=== PATIENT | male | born 1950 | race Caucasian/White ===

== ENCOUNTER 2021-03-21 21:31 | Inpatient (IN) | payer MEDICARE, MEDICAID ==
[~2021-03-21] VITALS: Ht 205.7 cm; Wt 159.8 kg
--- NOTE | 2021-03-21 21:42 | NUR ---
EKG DONE ON ARRIVAL.
--- NOTE | 2021-03-21 21:51 | NUR ---
PT BIBA FROM HOME FOR INTERMITTENT FEVER, DIARRHEA, LOSS OF APETITE AND DIZZINESS, EMS STATED UPON ARRIVAL PT WAS 75% ON ROOM AIR, PT STARTED ON 6LMP NASAL CANULA BY EMS AND WERE ONLY ABLE TO ACHEIVE 88% O2 SATURATION, PT ARRIVED WITH 18G IN THE LEFT FOREARM, PT STATES WHEN HE STANDS UP HE FEELS DIZZY AND CANT WALK EVEN A FEW STEPS WITHOUT SITTING DOWN
--- NOTE | 2021-03-21 21:53 | NUR ---
PT ON OXYMASK AT 15LMP AND NASAL CANULA AT 6LMP AND O2 SATURATION IS AT 91%
[2021-03-21] MEDS ORDERED: ONDANSETRON 2MG/ML, 2ML ONE (22:08)
--- NOTE | 2021-03-21 22:21 | NUR ---
THIS RN CALLED RESPIRATORY THERAPIST TO COME DOWN AND EVALUATE PT FOR OPTIFLOW SINCE THIS RN CANNOT GET PTS O2 SATURATION ABOVE 92% EVEN WHILE HAVING PT NASAL CANULA AND OXYMASK
[2021-03-21] MEDS ORDERED: PLEASE ENTER HEIGHT AND WEIGHT MC SCH (22:30)
[2021-03-21] MEDS ORDERED: CEFTRIAXONE 1,000 MG in DEXTROSE 5% 50 ML IVPB ONE (22:30)
[2021-03-21] MEDS ORDERED: SODIUM CHLORIDE 0.9% 1,000ML IVBOLUS ONE (22:30)
[2021-03-21] MEDS ORDERED: SODIUM CHLORIDE FLUSH 10ML SYR IVF ONE (22:30)
[2021-03-21] MEDS ORDERED: AZITHROMYCIN 500 MG in SODIUM CHLORIDE 0.9% 250 ML IV ONE (22:30)
[2021-03-21] MEDS ORDERED: ONDANSETRON 2MG/ML, 2ML IVPush ONE (22:30)
[2021-03-21 22:47] LABS: BASOPHILS % (AUTO) 0 % (0-1); EOSINOPHILS % (AUTO) 0 % (1-7); LYMPHOCYTES % (AUTO) 8 % (22-44); MEAN CORPUSCULAR HEMOGLOBIN 32.1 pg (27.5-34.5); MEAN CORPUSCULAR HGB CONC 33.7 g/dL (33.2-36.2); MEAN PLATELET VOLUME 9.1 fL (7.4-10.4); MONOCYTES % (AUTO) 9 % (2-9); NEUTROPHILS % (AUTO) 83 % (42-75); PLATELET COUNT 120 x10^3/uL (130-400); RED BLOOD COUNT 4.77 x10^6/uL (4.38-5.82); RED CELL DISTRIBUTION WIDTH 13.1 % (9.4-14.8)
[2021-03-21 22:59] LABS: ALANINE AMINOTRANSFERASE 37 U/L (12-78); ALBUMIN 2.5 g/dL (3.4-5.0); ANION GAP 6 mmol/L (5-15); CALCIUM 7.3 mg/dL (8.5-10.1); CHLORIDE 103 mmol/L (98-107); CREATININE 1.13 mg/dL (0.7-1.3)
[2021-03-21 23:03] LABS: ALKALINE PHOSPHATASE 62 U/L (45-117); BILIRUBIN,TOTAL 0.4 mg/dL (0.2-1.0); TOTAL PROTEIN 6.6 g/dL (6.4-8.2); TROPONIN I < 0.015 ng/mL (0.000-0.045)
[2021-03-22] MEDS ORDERED: PHARMACY MAY ADJ FOR RENAL FX MC PRN
[2021-03-22] MEDS ORDERED: ONDANSETRON 2MG/ML, 2ML IVPush PRN
[2021-03-22] MEDS ORDERED: LABETALOL 5MG/ML, 20ML IVPush PRN
[2021-03-22 01:18] VITALS: BP 129/85
[2021-03-22 01:28] VITALS: BP 129/85
[2021-03-22] MEDS: ENOXAPARIN 40 MG/0.4 ML SQ SCH (01:38)
[2021-03-22] MEDS: FAMOTIDINE 20 MG TABLET PO SCH ×3 (01:39→21:01)
[2021-03-22] MEDS: ASCORBIC ACID 500 MG TABLET PO SCH ×3 (01:39→21:02)
[2021-03-22] MEDS: MELATONIN 5 MG TABLET PO SCH ×2 (01:39→21:02)
[2021-03-22 04:21] LABS: BASOPHILS % (AUTO) 0 % (0-1); EOSINOPHILS % (AUTO) 0 % (1-7); LYMPHOCYTES % (AUTO) 13 % (22-44); MEAN CORPUSCULAR HEMOGLOBIN 32.4 pg (27.5-34.5); MEAN CORPUSCULAR HGB CONC 33.9 g/dL (33.2-36.2); MEAN PLATELET VOLUME 9.2 fL (7.4-10.4); MONOCYTES % (AUTO) 7 % (2-9); NEUTROPHILS % (AUTO) 79 % (42-75); PLATELET COUNT 96 x10^3/uL (130-400); RED BLOOD COUNT 4.44 x10^6/uL (4.38-5.82); RED CELL DISTRIBUTION WIDTH 13.3 % (9.4-14.8)
[2021-03-22 04:35] LABS: ANION GAP 6 mmol/L (5-15); CALCIUM 7.4 mg/dL (8.5-10.1); CHLORIDE 104 mmol/L (98-107)
[2021-03-22 04:36] LABS: CREATININE 0.95 mg/dL (0.7-1.3)
[2021-03-22] MEDS: DEXAMETHASONE 4 MG/ML, 1ML IVPush SCH (08:20)
[2021-03-22] MEDS: ZINC SULFATE 220 MG CAPSULE PO SCH (08:21)
[2021-03-22 09:59] VITALS: BP 92/52
[2021-03-22] MEDS: GUAIFENESIN/DM 100-10MG, 5ML UDC PO PRN (10:51)
[2021-03-22] MEDS: CHOLECALCIFEROL 5,000u TAB PO SCH (10:51)
[2021-03-22] MEDS: AZITHROMYCIN 250 MG TABLET PO SCH (10:51)
[2021-03-22] MEDS: ACETAMINOPHEN 325 MG TABLET PO PRN (10:51)
[2021-03-22] MEDS: CEFTRIAXONE 2 GM in DEXTROSE 5% 50 ML IVPB SCH (11:01)
[2021-03-22 15:59] VITALS: BP 99/67
[2021-03-22] MEDS ORDERED: REMDESIVIR 200 MG in SODIUM CHLORIDE 0.9% 100 ML IVPB ONE (17:00)
[2021-03-22 20:56] VITALS: BP 106/73
[2021-03-22] MEDS: THIAMINE 100MG TABLET PO SCH (21:02)
[2021-03-23 00:37] VITALS: BP 100/60
[2021-03-23] MEDS: ENOXAPARIN 40 MG/0.4 ML SQ SCH (00:47)
[2021-03-23] MEDS: GUAIFENESIN/DM 100-10MG, 5ML UDC PO PRN ×3 (00:48→20:34)
[2021-03-23] MEDS: ACETAMINOPHEN 325 MG TABLET PO PRN ×2 (00:48→20:34)
[2021-03-23 05:05] LABS: BASOPHILS % (AUTO) 0 % (0-1); EOSINOPHILS % (AUTO) 0 % (1-7); LYMPHOCYTES % (AUTO) 8 % (22-44); MEAN CORPUSCULAR HEMOGLOBIN 32.5 pg (27.5-34.5); MEAN CORPUSCULAR HGB CONC 34.3 g/dL (33.2-36.2); MEAN PLATELET VOLUME 8.9 fL (7.4-10.4); MONOCYTES % (AUTO) 10 % (2-9); NEUTROPHILS % (AUTO) 83 % (42-75); PLATELET COUNT 126 x10^3/uL (130-400); RED BLOOD COUNT 4.27 x10^6/uL (4.38-5.82); RED CELL DISTRIBUTION WIDTH 13.1 % (9.4-14.8)
[2021-03-23 05:06] LABS: HCT (SEDRATE) 40.2 % (39.2-51.8)
[2021-03-23 05:15] LABS: CHLORIDE 105 mmol/L (98-107)
[2021-03-23 05:41] LABS: ALANINE AMINOTRANSFERASE 31 U/L (12-78); ALBUMIN 2.4 g/dL (3.4-5.0); ALKALINE PHOSPHATASE 56 U/L (45-117); ANION GAP 8 mmol/L (5-15); BILIRUBIN,TOTAL 0.3 mg/dL (0.2-1.0); CALCIUM 7.8 mg/dL (8.5-10.1); CREATININE 0.77 mg/dL (0.7-1.3); TOTAL PROTEIN 6.4 g/dL (6.4-8.2)
[2021-03-23] MEDS: ZINC SULFATE 220 MG CAPSULE PO SCH (09:21)
[2021-03-23] MEDS: ASCORBIC ACID 500 MG TABLET PO SCH ×2 (09:21→20:34)
[2021-03-23] MEDS: CEFTRIAXONE 2 GM in DEXTROSE 5% 50 ML IVPB SCH (09:21)
[2021-03-23] MEDS: DEXAMETHASONE 4 MG/ML, 1ML IVPush SCH (09:21)
[2021-03-23] MEDS: THIAMINE 100MG TABLET PO SCH ×2 (09:22→20:34)
[2021-03-23] MEDS: AZITHROMYCIN 250 MG TABLET PO SCH (09:22)
[2021-03-23] MEDS: FAMOTIDINE 20 MG TABLET PO SCH ×2 (09:22→20:34)
[2021-03-23] MEDS: CHOLECALCIFEROL 5,000u TAB PO SCH (09:22)
[2021-03-23 09:39] VITALS: BP 105/71
[2021-03-23] MEDS: FUROSEMIDE 40 MG/4 ML IV SCH ×2 (10:04→17:33)
[2021-03-23 14:00] VITALS: BP 112/76
[2021-03-23] MEDS: REMDESIVIR 100 MG in SODIUM CHLORIDE 0.9% 100 ML IVPB SCH (17:33)
[2021-03-23] MEDS: MELATONIN 5 MG TABLET PO SCH (20:34)
[2021-03-23 20:35] VITALS: BP 113/80
[2021-03-24 00:37] VITALS: BP 105/67
[2021-03-24] MEDS: ENOXAPARIN 40 MG/0.4 ML SQ SCH ×2 (01:00→23:53)
[2021-03-24 08:27] VITALS: BP 111/73
[2021-03-24 08:39] LABS: BASOPHILS % (AUTO) 0 % (0-1); EOSINOPHILS % (AUTO) 0 % (1-7); LYMPHOCYTES % (AUTO) 6 % (22-44); MEAN CORPUSCULAR HGB CONC 33.9 g/dL (33.2-36.2); MEAN PLATELET VOLUME 8.6 fL (7.4-10.4); MONOCYTES % (AUTO) 7 % (2-9); NEUTROPHILS % (AUTO) 88 % (42-75); PLATELET COUNT 178 x10^3/uL (130-400); RED BLOOD COUNT 4.64 x10^6/uL (4.38-5.82); RED CELL DISTRIBUTION WIDTH 13.3 % (9.4-14.8)
[2021-03-24 08:47] LABS: ALBUMIN 2.7 g/dL (3.4-5.0); ANION GAP 7 mmol/L (5-15); CALCIUM 8.1 mg/dL (8.5-10.1); CHLORIDE 106 mmol/L (98-107)
[2021-03-24 08:53] LABS: ALANINE AMINOTRANSFERASE 63 U/L (12-78); ALKALINE PHOSPHATASE 65 U/L (45-117); BILIRUBIN,TOTAL 0.5 mg/dL (0.2-1.0)
[2021-03-24] MEDS: FUROSEMIDE 40 MG/4 ML IV SCH ×2 (10:21→18:01)
[2021-03-24] MEDS: DEXAMETHASONE 4 MG/ML, 1ML IVPush SCH (10:21)
[2021-03-24] MEDS: ZINC SULFATE 220 MG CAPSULE PO SCH (10:21)
[2021-03-24] MEDS: CHOLECALCIFEROL 5,000u TAB PO SCH (10:21)
[2021-03-24] MEDS: THIAMINE 100MG TABLET PO SCH ×2 (10:22→21:57)
[2021-03-24] MEDS: ASCORBIC ACID 500 MG TABLET PO SCH ×2 (10:22→21:57)
[2021-03-24] MEDS: AZITHROMYCIN 250 MG TABLET PO SCH (10:22)
[2021-03-24] MEDS: FAMOTIDINE 20 MG TABLET PO SCH ×2 (10:22→21:57)
[2021-03-24] MEDS: CEFTRIAXONE 2 GM in DEXTROSE 5% 50 ML IVPB SCH (10:37)
[2021-03-24 12:01] VITALS: BP 126/77
[2021-03-24] MEDS: REMDESIVIR 100 MG in SODIUM CHLORIDE 0.9% 100 ML IVPB SCH (18:01)
[2021-03-24 21:36] VITALS: BP 101/65
[2021-03-24] MEDS: MELATONIN 5 MG TABLET PO SCH (21:57)
[2021-03-25 00:28] VITALS: BP 98/63
[2021-03-25 04:40] LABS: BASOPHILS % (AUTO) 0 % (0-1); EOSINOPHILS % (AUTO) 0 % (1-7); LYMPHOCYTES % (AUTO) 4 % (22-44); MEAN CORPUSCULAR HEMOGLOBIN 32.4 pg (27.5-34.5); MEAN CORPUSCULAR HGB CONC 34.2 g/dL (33.2-36.2); MEAN PLATELET VOLUME 8.7 fL (7.4-10.4); MONOCYTES % (AUTO) 8 % (2-9); NEUTROPHILS % (AUTO) 88 % (42-75); PLATELET COUNT 181 x10^3/uL (130-400); RED BLOOD COUNT 4.46 x10^6/uL (4.38-5.82); RED CELL DISTRIBUTION WIDTH 13.2 % (9.4-14.8)
[2021-03-25 04:54] LABS: ALBUMIN 2.4 g/dL (3.4-5.0); ANION GAP 7 mmol/L (5-15); CALCIUM 7.8 mg/dL (8.5-10.1); CHLORIDE 105 mmol/L (98-107)
[2021-03-25 04:57] LABS: ALANINE AMINOTRANSFERASE 106 U/L (12-78); ALKALINE PHOSPHATASE 68 U/L (45-117); BILIRUBIN,TOTAL 0.5 mg/dL (0.2-1.0); CREATININE 0.71 mg/dL (0.7-1.3); TOTAL PROTEIN 6.6 g/dL (6.4-8.2)
[2021-03-25] MEDS: FUROSEMIDE 40 MG/4 ML IV SCH ×2 (08:30→17:10)
[2021-03-25] MEDS: ZINC SULFATE 220 MG CAPSULE PO SCH (08:30)
[2021-03-25] MEDS: ASCORBIC ACID 500 MG TABLET PO SCH ×2 (08:30→21:23)
[2021-03-25] MEDS: DEXAMETHASONE 4 MG/ML, 1ML IVPush SCH (08:30)
[2021-03-25] MEDS: CHOLECALCIFEROL 5,000u TAB PO SCH (08:31)
[2021-03-25] MEDS: AZITHROMYCIN 250 MG TABLET PO SCH (08:31)
[2021-03-25] MEDS: FAMOTIDINE 20 MG TABLET PO SCH ×2 (08:31→21:24)
[2021-03-25] MEDS: THIAMINE 100MG TABLET PO SCH ×2 (08:31→21:24)
[2021-03-25] MEDS: DOCUSATE 100 MG CAPSULE PO SCH (08:31)
[2021-03-25 08:33] VITALS: BP 94/59
[2021-03-25] MEDS ORDERED: LACTULOSE 20 GM/30 ML UDC PO PRN (09:00)
[2021-03-25] MEDS: CEFTRIAXONE 2 GM in DEXTROSE 5% 50 ML IVPB SCH (10:13)
[2021-03-25 10:43] LABS: MICROSCOPIC NOT IND
[2021-03-25 12:41] VITALS: BP 95/61
[2021-03-25] MEDS: REMDESIVIR 100 MG in SODIUM CHLORIDE 0.9% 100 ML IVPB SCH (17:10)
[2021-03-25 20:41] VITALS: BP 103/65
[2021-03-25] MEDS ORDERED: BISACODYL 10 MG SUPP PR PRN (21:00)
[2021-03-25] MEDS: SENNA/DOCUSATE TABLET PO SCH (21:23)
[2021-03-25] MEDS: MELATONIN 5 MG TABLET PO SCH (21:23)
[2021-03-26] MEDS: ENOXAPARIN 40 MG/0.4 ML SQ SCH
[2021-03-26] MEDS: GUAIFENESIN/DM 100-10MG, 5ML UDC PO PRN ×2 (01:12→23:22)
[2021-03-26 02:29] VITALS: BP 97/62
[2021-03-26 04:59] LABS: ALBUMIN 2.3 g/dL (3.4-5.0); ANION GAP 6 mmol/L (5-15); CALCIUM 7.7 mg/dL (8.5-10.1); CHLORIDE 101 mmol/L (98-107)
[2021-03-26 05:04] LABS: ALANINE AMINOTRANSFERASE 111 U/L (12-78); ALKALINE PHOSPHATASE 69 U/L (45-117); BILIRUBIN,TOTAL 0.6 mg/dL (0.2-1.0); CREATININE 0.79 mg/dL (0.7-1.3); TOTAL PROTEIN 6.7 g/dL (6.4-8.2)
[2021-03-26] MEDS: DOCUSATE 100 MG CAPSULE PO SCH (08:02)
[2021-03-26] MEDS: THIAMINE 100MG TABLET PO SCH ×2 (08:02→21:00)
[2021-03-26] MEDS: ASCORBIC ACID 500 MG TABLET PO SCH ×2 (08:02→21:00)
[2021-03-26] MEDS: FAMOTIDINE 20 MG TABLET PO SCH ×2 (08:02→21:00)
[2021-03-26] MEDS: ZINC SULFATE 220 MG CAPSULE PO SCH (08:03)
[2021-03-26] MEDS: FUROSEMIDE 40 MG/4 ML IV SCH ×2 (08:03→16:56)
[2021-03-26] MEDS: CHOLECALCIFEROL 5,000u TAB PO SCH (08:03)
[2021-03-26] MEDS: DEXAMETHASONE 4 MG/ML, 1ML IVPush SCH (08:03)
[2021-03-26 08:07] VITALS: BP 95/64
[2021-03-26] MEDS: CEFTRIAXONE 2 GM in DEXTROSE 5% 50 ML IVPB SCH (10:40)
[2021-03-26 13:24] VITALS: BP 112/78
[2021-03-26] MEDS: REMDESIVIR 100 MG in SODIUM CHLORIDE 0.9% 100 ML IVPB SCH (16:57)
[2021-03-26] MEDS: SENNA/DOCUSATE TABLET PO SCH (21:00)
[2021-03-26] MEDS: MELATONIN 5 MG TABLET PO SCH (21:00)
[2021-03-27] MEDS: ENOXAPARIN 40 MG/0.4 ML SQ SCH (00:50)
[2021-03-27 01:58] VITALS: BP 108/72
[2021-03-27 06:40] LABS: BASOPHILS % (AUTO) 0 % (0-1); EOSINOPHILS % (AUTO) 1 % (1-7); LYMPHOCYTES % (AUTO) 7 % (22-44); MEAN CORPUSCULAR HEMOGLOBIN 31.6 pg (27.5-34.5); MEAN CORPUSCULAR HGB CONC 33.4 g/dL (33.2-36.2); MEAN PLATELET VOLUME 9.5 fL (7.4-10.4); MONOCYTES % (AUTO) 8 % (2-9); NEUTROPHILS % (AUTO) 84 % (42-75); PLATELET COUNT 137 x10^3/uL (130-400); RED BLOOD COUNT 4.54 x10^6/uL (4.38-5.82); RED CELL DISTRIBUTION WIDTH 13.2 % (9.4-14.8)
[2021-03-27 06:50] LABS: ANION GAP 6 mmol/L (5-15); CALCIUM 7.8 mg/dL (8.5-10.1); CHLORIDE 99 mmol/L (98-107); CREATININE 0.76 mg/dL (0.7-1.3)
[2021-03-27] MEDS: FAMOTIDINE 20 MG TABLET PO SCH ×2 (08:03→20:40)
[2021-03-27] MEDS: CHOLECALCIFEROL 5,000u TAB PO SCH (08:03)
[2021-03-27] MEDS: DOCUSATE 100 MG CAPSULE PO SCH (08:03)
[2021-03-27] MEDS: ZINC SULFATE 220 MG CAPSULE PO SCH (08:03)
[2021-03-27] MEDS: ASCORBIC ACID 500 MG TABLET PO SCH ×2 (08:04→20:41)
[2021-03-27] MEDS: DEXAMETHASONE 4 MG/ML, 1ML IVPush SCH (08:04)
[2021-03-27] MEDS: THIAMINE 100MG TABLET PO SCH ×2 (08:04→20:40)
[2021-03-27] MEDS: FUROSEMIDE 40 MG/4 ML IV SCH ×2 (08:04→16:14)
[2021-03-27 08:07] VITALS: BP 121/82
[2021-03-27] MEDS: CEFTRIAXONE 2 GM in DEXTROSE 5% 50 ML IVPB SCH (09:59)
[2021-03-27 13:27] VITALS: BP 112/71
[2021-03-27 18:45] VITALS: BP 114/82
[2021-03-27] MEDS: GUAIFENESIN/DM 100-10MG, 5ML UDC PO PRN (20:40)
[2021-03-27] MEDS: MELATONIN 5 MG TABLET PO SCH (20:41)
[2021-03-28] MEDS: ENOXAPARIN 40 MG/0.4 ML SQ SCH (00:50)
[2021-03-28 00:53] VITALS: BP 118/78
[2021-03-28] MEDS: ACETAMINOPHEN 325 MG TABLET PO PRN ×2 (01:30→20:20)
[2021-03-28 06:39] LABS: BASOPHILS % (AUTO) 0 % (0-1); EOSINOPHILS % (AUTO) 2 % (1-7); LYMPHOCYTES % (AUTO) 10 % (22-44); MEAN CORPUSCULAR HEMOGLOBIN 32.4 pg (27.5-34.5); MEAN CORPUSCULAR HGB CONC 34.3 g/dL (33.2-36.2); MEAN PLATELET VOLUME 10.9 fL (7.4-10.4); MONOCYTES % (AUTO) 9 % (2-9); NEUTROPHILS % (AUTO) 80 % (42-75); PLATELET COUNT 144 x10^3/uL (130-400); RED BLOOD COUNT 4.77 x10^6/uL (4.38-5.82); RED CELL DISTRIBUTION WIDTH 13.1 % (9.4-14.8)
[2021-03-28 06:42] LABS: ALBUMIN 2.6 g/dL (3.4-5.0); ANION GAP 8 mmol/L (5-15); CALCIUM 8.3 mg/dL (8.5-10.1); CHLORIDE 99 mmol/L (98-107)
[2021-03-28 06:51] LABS: ALANINE AMINOTRANSFERASE 68 U/L (12-78); ALKALINE PHOSPHATASE 76 U/L (45-117); BILIRUBIN,TOTAL 0.8 mg/dL (0.2-1.0); CREATININE 0.71 mg/dL (0.7-1.3); TOTAL PROTEIN 7.3 g/dL (6.4-8.2)
[2021-03-28] MEDS: FAMOTIDINE 20 MG TABLET PO SCH ×2 (08:07→20:20)
[2021-03-28] MEDS: THIAMINE 100MG TABLET PO SCH ×2 (08:07→20:20)
[2021-03-28] MEDS: ZINC SULFATE 220 MG CAPSULE PO SCH (08:07)
[2021-03-28] MEDS: FUROSEMIDE 40 MG/4 ML IV SCH ×2 (08:08→16:45)
[2021-03-28] MEDS: CHOLECALCIFEROL 5,000u TAB PO SCH (08:08)
[2021-03-28] MEDS: ASCORBIC ACID 500 MG TABLET PO SCH ×2 (08:08→20:19)
[2021-03-28] MEDS: DEXAMETHASONE 4 MG/ML, 1ML IVPush SCH (08:08)
[2021-03-28] MEDS: DOCUSATE 100 MG CAPSULE PO SCH (08:09)
[2021-03-28 08:11] VITALS: BP 89/65
[2021-03-28 13:55] VITALS: BP 114/75
[2021-03-28 19:55] VITALS: BP 121/82
[2021-03-28] MEDS: MELATONIN 5 MG TABLET PO SCH (20:19)
[2021-03-28] MEDS: GUAIFENESIN/DM 100-10MG, 5ML UDC PO PRN (20:20)
[2021-03-29] MEDS: ENOXAPARIN 40 MG/0.4 ML SQ SCH (00:55)
[2021-03-29 01:48] VITALS: BP 117/76
[2021-03-29 05:01] LABS: BASOPHILS % (AUTO) 0 % (0-1); EOSINOPHILS % (AUTO) 1 % (1-7); LYMPHOCYTES % (AUTO) 7 % (22-44); MEAN CORPUSCULAR HEMOGLOBIN 32.6 pg (27.5-34.5); MEAN CORPUSCULAR HGB CONC 34.4 g/dL (33.2-36.2); MEAN PLATELET VOLUME 10.7 fL (7.4-10.4); MONOCYTES % (AUTO) 9 % (2-9); NEUTROPHILS % (AUTO) 84 % (42-75); PLATELET COUNT 124 x10^3/uL (130-400); RED BLOOD COUNT 4.65 x10^6/uL (4.38-5.82); RED CELL DISTRIBUTION WIDTH 13.1 % (9.4-14.8)
[2021-03-29 05:02] LABS: CALCIUM 8.2 mg/dL (8.5-10.1); CHLORIDE 100 mmol/L (98-107)
[2021-03-29 05:07] LABS: ALANINE AMINOTRANSFERASE 55 U/L (12-78); ALBUMIN 2.5 g/dL (3.4-5.0); ALKALINE PHOSPHATASE 72 U/L (45-117); ANION GAP 6 mmol/L (5-15); BILIRUBIN,TOTAL 0.8 mg/dL (0.2-1.0); CREATININE 0.74 mg/dL (0.7-1.3); TOTAL PROTEIN 7.4 g/dL (6.4-8.2)
[2021-03-29] MEDS: FUROSEMIDE 40 MG/4 ML IV SCH ×2 (08:11→17:10)
[2021-03-29] MEDS: POLYETHYLENE GLYCOL 17 GM PACKET PO PRN (08:12)
[2021-03-29] MEDS: DEXAMETHASONE 4 MG/ML, 1ML IVPush SCH (08:12)
[2021-03-29] MEDS: ZINC SULFATE 220 MG CAPSULE PO SCH (08:13)
[2021-03-29] MEDS: ASCORBIC ACID 500 MG TABLET PO SCH ×2 (08:14→21:06)
[2021-03-29] MEDS: DOCUSATE 100 MG CAPSULE PO SCH (08:14)
[2021-03-29] MEDS: CHOLECALCIFEROL 5,000u TAB PO SCH (08:15)
[2021-03-29] MEDS: FAMOTIDINE 20 MG TABLET PO SCH ×2 (08:15→21:06)
[2021-03-29] MEDS: THIAMINE 100MG TABLET PO SCH ×2 (08:16→21:06)
[2021-03-29 08:37] VITALS: BP 115/75
[2021-03-29] MEDS: FLUTICASONE/VILANTEROL 100-25MCG/INH INH SCH (10:58)
[2021-03-29 13:03] VITALS: BP 103/72
[2021-03-29 20:41] VITALS: BP 102/68
[2021-03-29] MEDS: MELATONIN 5 MG TABLET PO SCH (21:07)
[2021-03-30] MEDS: ENOXAPARIN 40 MG/0.4 ML SQ SCH ×2 (00:05→23:39)
[2021-03-30 02:46] VITALS: BP 99/68
[2021-03-30 06:28] LABS: BASOPHILS % (AUTO) 0 % (0-1); EOSINOPHILS % (AUTO) 1 % (1-7); LYMPHOCYTES % (AUTO) 11 % (22-44); MEAN CORPUSCULAR HEMOGLOBIN 32.1 pg (27.5-34.5); MEAN CORPUSCULAR HGB CONC 34.1 g/dL (33.2-36.2); MEAN PLATELET VOLUME 10.4 fL (7.4-10.4); MONOCYTES % (AUTO) 11 % (2-9); NEUTROPHILS % (AUTO) 76 % (42-75); PLATELET COUNT 113 x10^3/uL (130-400); RED BLOOD COUNT 4.78 x10^6/uL (4.38-5.82)
[2021-03-30 06:35] LABS: ALANINE AMINOTRANSFERASE 54 U/L (12-78); ALBUMIN 1.9 g/dL (3.4-5.0); ANION GAP 4 mmol/L (5-15); CALCIUM 8.3 mg/dL (8.5-10.1); CHLORIDE 101 mmol/L (98-107); CREATININE 0.71 mg/dL (0.7-1.3)
[2021-03-30 06:44] LABS: ALKALINE PHOSPHATASE 70 U/L (45-117); BILIRUBIN,TOTAL 0.8 mg/dL (0.2-1.0); TOTAL PROTEIN 7.2 g/dL (6.4-8.2)
[2021-03-30 07:42] VITALS: BP 120/77
[2021-03-30] MEDS: ASCORBIC ACID 500 MG TABLET PO SCH ×2 (07:56→20:33)
[2021-03-30] MEDS: FAMOTIDINE 20 MG TABLET PO SCH ×2 (07:56→20:33)
[2021-03-30] MEDS: DOCUSATE 100 MG CAPSULE PO SCH (07:56)
[2021-03-30] MEDS: FUROSEMIDE 40 MG/4 ML IV SCH ×2 (07:56→17:00)
[2021-03-30] MEDS: ZINC SULFATE 220 MG CAPSULE PO SCH (07:56)
[2021-03-30] MEDS: DEXAMETHASONE 4 MG/ML, 1ML IVPush SCH (07:56)
[2021-03-30] MEDS: CHOLECALCIFEROL 5,000u TAB PO SCH (07:57)
[2021-03-30] MEDS: THIAMINE 100MG TABLET PO SCH ×2 (07:57→20:33)
[2021-03-30] MEDS: FLUTICASONE/VILANTEROL 100-25MCG/INH INH SCH (07:59)
[2021-03-30 12:34] VITALS: BP 101/69
[2021-03-30] MEDS: ACETAMINOPHEN 325 MG TABLET PO PRN (14:00)
[2021-03-30] MEDS: POLYETHYLENE GLYCOL 17 GM PACKET PO PRN (17:00)
[2021-03-30 20:23] VITALS: BP 111/76
[2021-03-30] MEDS: MELATONIN 5 MG TABLET PO SCH (20:33)
[2021-03-31 02:00] VITALS: BP 105/62
[2021-03-31 04:57] VITALS: BP 100/67
[2021-03-31 08:23] VITALS: BP 97/66
[2021-03-31] MEDS: ZINC SULFATE 220 MG CAPSULE PO SCH (09:00)
[2021-03-31] MEDS: ASCORBIC ACID 500 MG TABLET PO SCH ×2 (09:28→22:10)
[2021-03-31] MEDS: CHOLECALCIFEROL 5,000u TAB PO SCH (09:28)
[2021-03-31] MEDS: DOCUSATE 100 MG CAPSULE PO SCH (09:28)
[2021-03-31] MEDS: THIAMINE 100MG TABLET PO SCH ×2 (09:28→22:10)
[2021-03-31] MEDS: DEXAMETHASONE 4 MG/ML, 1ML IVPush SCH (09:28)
[2021-03-31] MEDS: FAMOTIDINE 20 MG TABLET PO SCH ×2 (09:28→22:10)
[2021-03-31] MEDS: FUROSEMIDE 40 MG/4 ML IV SCH ×2 (09:29→17:09)
[2021-03-31] MEDS: FLUTICASONE/VILANTEROL 100-25MCG/INH INH SCH (09:29)
[2021-03-31 10:32] LABS: ANION GAP 5 mmol/L (5-15); CALCIUM 8.9 mg/dL (8.5-10.1); CHLORIDE 98 mmol/L (98-107); CREATININE 1.03 mg/dL (0.7-1.3)
[2021-03-31 10:34] LABS: BASOPHILS % (AUTO) 1 % (0-1); EOSINOPHILS % (AUTO) 1 % (1-7); LYMPHOCYTES % (AUTO) 14 % (22-44); MEAN CORPUSCULAR HEMOGLOBIN 31.9 pg (27.5-34.5); MEAN CORPUSCULAR HGB CONC 33.7 g/dL (33.2-36.2); MEAN PLATELET VOLUME 11.3 fL (7.4-10.4); MONOCYTES % (AUTO) 12 % (2-9); NEUTROPHILS % (AUTO) 73 % (42-75); PLATELET COUNT 158 x10^3/uL (130-400); RED BLOOD COUNT 5.22 x10^6/uL (4.38-5.82); RED CELL DISTRIBUTION WIDTH 13.1 % (9.4-14.8)
[2021-03-31] MEDS ORDERED: POTASSIUM CHLORIDE 20 MEQ TAB.ER.PRT PO ONE (12:30)
[2021-03-31 20:00] VITALS: BP 133/79
[2021-03-31 20:20] VITALS: BP 109/74
[2021-03-31] MEDS: MELATONIN 5 MG TABLET PO SCH (22:10)
[2021-04-01 00:58] VITALS: BP 89/59
[2021-04-01] MEDS: ENOXAPARIN 40 MG/0.4 ML SQ SCH ×2 (01:02→23:08)
[2021-04-01 04:38] LABS: BASOPHILS % (AUTO) 1 % (0-1); EOSINOPHILS % (AUTO) 1 % (1-7); LYMPHOCYTES % (AUTO) 12 % (22-44); MEAN CORPUSCULAR HEMOGLOBIN 31.5 pg (27.5-34.5); MEAN CORPUSCULAR HGB CONC 33.5 g/dL (33.2-36.2); MEAN PLATELET VOLUME 11.4 fL (7.4-10.4); MONOCYTES % (AUTO) 12 % (2-9); NEUTROPHILS % (AUTO) 74 % (42-75); PLATELET COUNT 161 x10^3/uL (130-400); RED BLOOD COUNT 4.79 x10^6/uL (4.38-5.82); RED CELL DISTRIBUTION WIDTH 13.2 % (9.4-14.8)
[2021-04-01 04:50] LABS: CALCIUM 9.2 mg/dL (8.5-10.1); CHLORIDE 99 mmol/L (98-107)
[2021-04-01 04:58] LABS: ANION GAP 6 mmol/L (5-15); C-REACTIVE PROTEIN, QUANT 0.85 mg/dL (0.02-0.49); CREATININE 0.93 mg/dL (0.7-1.3)
[2021-04-01 05:05] LABS: D-DIMER 2.37 ug/mlFEU (0.00-0.52)
[2021-04-01] MEDS: DEXAMETHASONE 4 MG/ML, 1ML IVPush SCH (08:29)
[2021-04-01] MEDS: FLUTICASONE/VILANTEROL 100-25MCG/INH INH SCH (08:29)
[2021-04-01] MEDS: FUROSEMIDE 40 MG/4 ML IV SCH ×2 (08:29→16:28)
[2021-04-01] MEDS: ASCORBIC ACID 500 MG TABLET PO SCH ×2 (08:30→20:02)
[2021-04-01] MEDS: FAMOTIDINE 20 MG TABLET PO SCH ×2 (08:30→20:02)
[2021-04-01] MEDS: THIAMINE 100MG TABLET PO SCH ×2 (08:30→20:02)
[2021-04-01] MEDS: DOCUSATE 100 MG CAPSULE PO SCH (08:30)
[2021-04-01] MEDS: ZINC SULFATE 220 MG CAPSULE PO SCH (08:31)
[2021-04-01] MEDS: CHOLECALCIFEROL 5,000u TAB PO SCH (08:32)
[2021-04-01 08:36] VITALS: BP 95/67
[2021-04-01] MEDS: ACETAMINOPHEN 325 MG TABLET PO PRN (08:48)
[2021-04-01 14:15] VITALS: BP 117/78
[2021-04-01] MEDS ORDERED: OMNIPAQUE 350 MG/ML, 100ML BOTTLE ONE (18:00)
[2021-04-01] MEDS: MELATONIN 5 MG TABLET PO SCH (20:02)
[2021-04-01 20:37] VITALS: BP 114/80
[2021-04-01] MEDS ORDERED: SIMETHICONE 125 MG CHEW TAB PO ONE (21:00)
[2021-04-02 02:48] VITALS: BP 102/72
[2021-04-02 06:45] LABS: CALCIUM 8.8 mg/dL (8.5-10.1); CHLORIDE 98 mmol/L (98-107)
[2021-04-02 06:48] LABS: ANION GAP 5 mmol/L (5-15); CREATININE 1.03 mg/dL (0.7-1.3)
[2021-04-02] MEDS: FUROSEMIDE 40 MG/4 ML IV SCH (07:30)
[2021-04-02 10:51] VITALS: BP 93/61
[2021-04-02] MEDS: ZINC SULFATE 220 MG CAPSULE PO SCH (11:02)
[2021-04-02] MEDS: DOCUSATE 100 MG CAPSULE PO SCH (11:02)
[2021-04-02] MEDS: DEXAMETHASONE 4 MG/ML, 1ML IVPush SCH (11:02)
[2021-04-02] MEDS: CHOLECALCIFEROL 5,000u TAB PO SCH (11:02)
[2021-04-02] MEDS: FAMOTIDINE 20 MG TABLET PO SCH ×2 (11:02→22:23)
[2021-04-02] MEDS: ASCORBIC ACID 500 MG TABLET PO SCH ×2 (11:03→22:23)
[2021-04-02] MEDS: ACETAMINOPHEN 325 MG TABLET PO PRN (11:05)
[2021-04-02] MEDS: FLUTICASONE/VILANTEROL 100-25MCG/INH INH SCH (11:11)
[2021-04-02] MEDS ORDERED: FUROSEMIDE 40 MG TABLET ONE (12:29)
[2021-04-02] MEDS: FUROSEMIDE 40 MG TABLET PO SCH ×2 (12:50→18:37)
[2021-04-02] MEDS: THIAMINE 100MG TABLET PO SCH ×2 (12:50→21:00)
[2021-04-02 13:38] VITALS: BP 113/73
[2021-04-02 20:47] VITALS: BP 99/66
[2021-04-02] MEDS: MELATONIN 5 MG TABLET PO SCH (21:00)
[2021-04-02] MEDS: ENOXAPARIN 40 MG/0.4 ML SQ SCH (23:42)
[2021-04-03 03:49] VITALS: BP 95/63
[2021-04-03 07:19] LABS: BASOPHILS % (AUTO) 1 % (0-1); EOSINOPHILS % (AUTO) 1 % (1-7); LYMPHOCYTES % (AUTO) 12 % (22-44); MEAN CORPUSCULAR HGB CONC 33.8 g/dL (33.2-36.2); MONOCYTES % (AUTO) 11 % (2-9); NEUTROPHILS % (AUTO) 76 % (42-75); PLATELET COUNT 124 x10^3/uL (130-400); RED BLOOD COUNT 4.72 x10^6/uL (4.38-5.82); RED CELL DISTRIBUTION WIDTH 12.8 % (9.4-14.8)
[2021-04-03 07:33] LABS: ALBUMIN 2.7 g/dL (3.4-5.0); ANION GAP 9 mmol/L (5-15); CHLORIDE 98 mmol/L (98-107)
[2021-04-03 07:41] LABS: ALANINE AMINOTRANSFERASE 45 U/L (12-78); ALKALINE PHOSPHATASE 79 U/L (45-117); BILIRUBIN,TOTAL 0.9 mg/dL (0.2-1.0); C-REACTIVE PROTEIN, QUANT 0.79 mg/dL (0.02-0.49); CREATININE 1.14 mg/dL (0.7-1.3); TOTAL PROTEIN 7.6 g/dL (6.4-8.2)
[2021-04-03 07:54] LABS: D-DIMER 2.21 ug/mlFEU (0.00-0.52)
[2021-04-03 08:23] VITALS: BP 102/71
[2021-04-03] MEDS: FUROSEMIDE 40 MG TABLET PO SCH (08:36)
[2021-04-03] MEDS: DOCUSATE 100 MG CAPSULE PO SCH (08:37)
[2021-04-03] MEDS: DEXAMETHASONE 4 MG/ML, 1ML IVPush SCH (08:37)
[2021-04-03] MEDS: ZINC SULFATE 220 MG CAPSULE PO SCH (08:37)
[2021-04-03] MEDS: THIAMINE 100MG TABLET PO SCH (08:37)
[2021-04-03] MEDS: CHOLECALCIFEROL 5,000u TAB PO SCH (08:37)
[2021-04-03] MEDS: FLUTICASONE/VILANTEROL 100-25MCG/INH INH SCH (08:37)
[2021-04-03] MEDS: FAMOTIDINE 20 MG TABLET PO SCH (08:37)
[2021-04-03] MEDS: ASCORBIC ACID 500 MG TABLET PO SCH (08:37)
[2021-04-03] MEDS ORDERED: CHOL500045 PO (11:53)
[2021-04-03] MEDS ORDERED: MELA5TAB14 PO (11:53)
[2021-04-03] MEDS ORDERED: ACET325T26 PO (11:53)
[2021-04-03] MEDS ORDERED: ASCO500T9 PO (11:53)
[2021-04-03] MEDS ORDERED: ZINC220C8 PO (11:53)
[2021-04-03] MEDS ORDERED: THIA100T67 PO (11:53)
[2021-04-03] MEDS ORDERED: DEXA6TAB6 PO (11:53)
[2021-04-03] MEDS ORDERED: ALBUMIN HUMAN 25% 100 ML IV ONE (13:00)
[2021-04-03 16:25] VITALS: BP 110/67
[2021-04-03] MEDS ORDERED: ASPI81TA45 PO (22:40)
== END 2021-04-03 19:20 | disposition home health service (06) | DRG 177 ==
LOC: ED 22:22 → EDIP 03-22 00:06 → 4WST 03-22 01:03
PROVIDERS: ADMIT Internal Medicine; ATTEND Internal Medicine
PROC: XW033E5 Introduction of Remdesivir Anti-infective into Peripheral Vein, Percutaneous Approach, New Technology Group 5 (ICD-10-PCS; principal; 2021-03-22)
PROC: 5A0935A Assistance with Respiratory Ventilation, Less than 24 Consecutive Hours, High Flow/Velocity Cannula (ICD-10-PCS; 2021-03-22)
PROC: 5A0935A Assistance with Respiratory Ventilation, Less than 24 Consecutive Hours, High Flow/Velocity Cannula (ICD-10-PCS; 2021-03-23)
PROC: 5A0935A Assistance with Respiratory Ventilation, Less than 24 Consecutive Hours, High Flow/Velocity Cannula (ICD-10-PCS; 2021-03-24)
PROC: 5A0935A Assistance with Respiratory Ventilation, Less than 24 Consecutive Hours, High Flow/Velocity Cannula (ICD-10-PCS; 2021-03-30)
PROC: 5A0935A Assistance with Respiratory Ventilation, Less than 24 Consecutive Hours, High Flow/Velocity Cannula (ICD-10-PCS; 2021-03-31)
PROC: 5A0935A Assistance with Respiratory Ventilation, Less than 24 Consecutive Hours, High Flow/Velocity Cannula (ICD-10-PCS; 2021-04-01)
PROC: 5A0935A Assistance with Respiratory Ventilation, Less than 24 Consecutive Hours, High Flow/Velocity Cannula (ICD-10-PCS; 2021-04-02)
DX: U07.1 COVID-19 (principal); J96.01 Acute respiratory failure with hypoxia; J12.82 Pneumonia due to coronavirus disease 2019; J15.9 Unspecified bacterial pneumonia; E22.2 Syndrome of inappropriate secretion of antidiuretic hormone; D69.59 Other secondary thrombocytopenia; E66.9 Obesity, unspecified; Z96.651 Presence of right artificial knee joint; E78.5 Hyperlipidemia, unspecified; Z68.39 Body mass index [BMI] 39.0-39.9, adult; Z98.1 Arthrodesis status; Z91.14 Patient's other noncompliance with medication regimen
CPT/HCPCS: 36415; 36600; 71045; 71275; 80048; 80053; 81003; 82728; 82803; 83605; 83615; 83735; 83880; 84145; 84484; 85025; 85379; 85384; 85651; 86140; 87040; 93005; 94667; 96361; 96365; 99291; G0378; J0456; J0696; J1100; J1650; J1940; P9047; Q9967; U0005; J7030; J7050; U0003